=== PATIENT | female | born 2000 | race Caucasian/White ===

== ENCOUNTER 2025-03-14 17:48 | Emergency (ER) | payer OTHER ==
[~2025-03-14] VITALS: Ht 175.3 cm; Wt 75.5 kg
[2025-03-14 17:53] VITALS: BP 127/84; PULSE 97; RESP 18; TEMP 98.2; O2SAT 100
[2025-03-14] MEDS ORDERED: PRAZ2 PO (17:58)
[2025-03-14] MEDS ORDERED: GABA-1181 PO (17:58)
[2025-03-14] MEDS ORDERED: FLUO-342 PO (17:58)
[2025-03-14] MEDS ORDERED: TRAZ-252 PO (17:58)
[2025-03-14] MEDS ORDERED: ACET-3385 PO (18:46)
[2025-03-14] MEDS ORDERED: LIDO-57 TP (18:46)
[2025-03-14] MEDS ORDERED: IBUP-1492 PO (18:46)
[2025-03-14] MEDS: KETOROLAC TROMETHAMINE 30 MG/ML VIAL IM ONE (18:50)
[2025-03-14] MEDS: LIDOCAINE 5% TRANSDERMAL PATCH TD ONE (18:50)
== END 2025-03-14 18:58 | disposition home or self-care (01) ==
LOC: EMS 17:48
DX: S39.012A Strain of muscle, fascia and tendon of lower back, initial encounter (principal); F41.9 Anxiety disorder, unspecified; F32.A Depression, unspecified; Z91.018 Allergy to other foods; Z79.899 Other long term (current) drug therapy; X50.0XXA Overexertion from strenuous movement or load, initial encounter; Y93.89 Activity, other specified; Y92.89 Other specified places as the place of occurrence of the external cause; Y99.8 Other external cause status
CPT/HCPCS: 99283; 96372; J1885